=== PATIENT | female | born 1975 | race Two or more races ===

== ENCOUNTER 2023-06-04 22:52 | Emergency (ER) | payer OTHER ==
[~2023-06-04] VITALS: Ht 167.6 cm; Wt 65.0 kg
[2023-06-05] VITALS: BP 127/71; PULSE 75; RESP 18; TEMP 98.3
[2023-06-05] MEDS ORDERED: KETOROLAC TROMETHAMINE 30 MG/ML VIAL IM ONE
[2023-06-05] MEDS ORDERED: AMOX250C4 PO
== END 2023-06-05 00:56 | disposition home or self-care (01) ==
LOC: EMS 22:53
DX: J32.9 Chronic sinusitis, unspecified (principal)
CPT/HCPCS: 99283; J1885; 99281